=== PATIENT | female | born 1985 | race Caucasian/White ===

== ENCOUNTER 2025-03-08 09:21 | Emergency (ER) | payer SELFPAY ==
[~2025-03-08] VITALS: Ht 160 cm; Wt 87.5 kg
[2025-03-08 09:27] VITALS: TEMP 98.4
[2025-03-08 10:21] LABS: BASOPHILS % 0.2 % (0.0-1.0); EOSINOPHILS % 0.1 % (0.0-6.0); HEMATOCRIT 41.4 % (34.2-44.1); LYMPHOCYTES # (AUTO) 1.3 (1.0-3.2); LYMPHOCYTES % 8.4 % (18.0-39.1); MEAN CORPUSCULAR HEMOGLOBIN 29.1 pg (28-32); MEAN CORPUSCULAR HGB CONC 33.8 g/dL (31-35); MEAN CORPUSCULAR VOLUME 86.1 fL (81-99); MONOCYTES # (AUTO) 0.8 (0.2-0.8); MONOCYTES % 5.4 % (4.4-11.3); NEUTROPHILS # (AUTO) 13.4 (2.1-6.9); NEUTROPHILS % 85.5 % (38.7-80.0); PLATELET COUNT 292 x10e3/uL (140-360); RED BLOOD COUNT 4.81 x10e6/uL (3.6-5.1); RED CELL DISTRIBUTION WIDTH 12.7 % (11.7-14.4); WHITE BLOOD COUNT 15.64 x10e3/uL (4.8-10.8)
[2025-03-08 10:35] LABS: ALBUMIN 3.7 g/dL (3.5-5.0); ALBUMIN/GLOBULIN RATIO 1.1 (0.8-2.0); ANION GAP 14.2 mmol/L (8-16); BILIRUBIN,TOTAL 0.5 mg/dL (0.2-1.2); CALCIUM 8.9 mg/dL (8.4-10.2); CREATININE, SERUM 0.74 mg/dL (0.57-1.11); TOTAL PROTEIN 7.2 g/dL (6.5-8.1)
[2025-03-08 10:36] LABS: POTASSIUM 3.2 mmol/L (3.5-5.1)
[2025-03-08 10:43] VITALS: PULSE 85; RESP 24; O2SAT 100
== END 2025-03-08 12:15 | disposition home or self-care (01) ==
LOC: ER 10:05
DX: R10.84 Generalized abdominal pain (principal); R11.0 Nausea
CPT/HCPCS: 36415; 80053; 83690; 85025; 99283